=== PATIENT | male | born 1980 | race Caucasian/White ===

== ENCOUNTER 2016-11-25 00:40 | Emergency (ER) | payer OTHER ==
[~2016-11-25] VITALS: Ht 182.9 cm; Wt 81.8 kg
[2016-11-25 03:11] VITALS: BP 130/80
[2016-11-25] MEDS ORDERED: ACETAMINOPHEN 500 MG TABLET PO ONE (03:15)
[2016-11-25] MEDS ORDERED: DiphenhydrAMINE HCL 25 MG CAPSULE PO ONE (03:15)
== END 2016-11-25 03:11 | disposition home or self-care (01) ==
LOC: EMS 00:41
DX: T63.441A Toxic effect of venom of bees, accidental (unintentional), initial encounter (principal); F17.210 Nicotine dependence, cigarettes, uncomplicated; Y92.89 Other specified places as the place of occurrence of the external cause
CPT/HCPCS: 99283; 99406

== ENCOUNTER 2017-11-24 23:43 | Emergency (ER) | payer OTHER ==
[~2017-11-24] VITALS: Ht 182.9 cm; Wt 79.5 kg
[2017-11-25] MEDS: CLINDAMYCIN HCL 150 MG CAPSULE PO ONE (01:16)
[2017-11-25 01:17] VITALS: BP 148/95
== END 2017-11-25 01:17 | disposition home or self-care (01) ==
LOC: EMS 23:44
DX: L03.114 Cellulitis of left upper limb (principal); F17.210 Nicotine dependence, cigarettes, uncomplicated
CPT/HCPCS: 99283